=== PATIENT | male | born 2000 | race Two or more races ===

== ENCOUNTER 2021-10-22 22:00 | Emergency (ER) | payer SELFPAY ==
[2021-10-23] MEDS ORDERED: Bupivacaine 0.5% 10 ML SDV INJECT ONE (00:17)
[2021-10-23] MEDS ORDERED: Lidocaine 1% with EPINEPHrine 1:100,000 10 ML MDV INJECT ONE (00:17)
[2021-10-23] MEDS ORDERED: Diphtheria,Pertussis(Acell),Tetanus Vaccine 0.5 ML Syringe IM ONE (00:18)
[2021-10-23] MEDS ORDERED: Lidocaine 1% with EPINEPHrine 1:100,000 20 ML MDV ONE (00:31)
[2021-10-23] MEDS ORDERED: Lidocaine 1% with EPINEPHrine 1:100,000 20 ML MDV INJECT ONE (00:36)
[2021-10-23] MEDS ORDERED: Amoxicillin/Clavulanate K 875-125 MG Tab PO STA (01:15)
== END 2021-10-23 01:40 | disposition home or self-care (01) ==
LOC: JD.ED 22:00
DX: L02.611 Cutaneous abscess of right foot (principal); E66.9 Obesity, unspecified; Z23 Encounter for immunization; Z68.37 Body mass index [BMI] 37.0-37.9, adult
CPT/HCPCS: 10060; 87070; 87075; 87077; 87186; 87205; 90471; 90715; 99283; A9270; J3490

== ENCOUNTER 2021-10-26 22:15 | Emergency (ER) | payer SELFPAY | END 2021-10-26 23:15 | disposition home or self-care (01) | LOC: JD.ED 22:15 | DX: Z48.00 Encounter for change or removal of nonsurgical wound dressing (principal); E66.9 Obesity, unspecified; Z68.30 Body mass index [BMI] 30.0-30.9, adult | CPT/HCPCS: 99282 ==